=== PATIENT | female | born 1975 | race Caucasian/White ===

== ENCOUNTER → 2017-05-03 | Outpatient (CLI) | payer OTHER ==
[~2017-05-03] MED LIST: AK-TRACIN500 U/GM OP; CLINDAMYCIN HC300 MG PO; DIFLUCAN150 MG PO; FLEXERIL10 MG PO; HYDROCODONE1 TABLET PO; IBU-8800 MG PO; KEFLEX 500MG.500 MG PO; LORTAB 5/500 501 TAB PO; MEDROL 4MG. DOSE4 MG PO; MOTRIN800 MG PO; NAPROXEN SODIU500 MG PO; NOMEDS *; PHENERGAN 25MG.25 M1 PO; PHENERGAN VC +120 ML PO; TYLENOL W/CODEI1 TA2 PO; VOLTAREN75 MG PO; ZITHROMAX Z PA250 MG PO; ZOFRAN ODT4 MG PO
--- NOTE | 2017-05-03 15:23 | RADIOLOGY REPORT PS360 ---
EXAM: LUMBAR SPINE 5 VIEWS HISTORY: Low back pain RT HIP PAIN,PELVIC PAIN,ZI LOW BACK PAIN ORDERING PHYSICIAN: Micaela Montoya APRN PATIENT AGE: 42 years COMPARISON: None FINDINGS: Normal alignment. No fracture or dislocation. No lytic or blastic change. There is partial lumbarization of S1 with mild degenerative disc disease at L4-L5. No lytic or blastic change. The SI joints have an unremarkable appearance. IMPRESSION: Mild degenerative disc disease at L4-5
--- NOTE | 2017-05-03 15:27 | RADIOLOGY REPORT PS360 ---
HIP RT 2-3V W/PELVIS IF PERFOR HISTORY: RT HIP PAIN,PELVIC PAIN,ZI LOW BACK PAIN ORDERING PHYSICIAN: Micaela Montoya APRN PATIENT AGE: 42 years COMPARISON: None FINDINGS: No fracture or dislocation is evident. No significant degenerative change. No lytic or blastic change. Unremarkable soft tissues IMPRESSION: Negative right hip
== END ==
LOC: RAD 11:28
DX: M25.551 Pain in right hip (principal); M54.5 Low back pain; R10.2 Pelvic and perineal pain

== ENCOUNTER → 2017-05-30 | Outpatient (CLI) | payer OTHER ==
--- NOTE | 2017-05-31 10:06 | RADIOLOGY REPORT PS360 ---
MRI-LOW EXT ANY JOINT W/O-RT HISTORY: Right hip and buttock pain with burning in the body. Right leg pain PELVIC PAIN, RIGHT HIP PAIN ORDERING PHYSICIAN: Micaela Montoya APRN PATIENT AGE: 42 years COMPARISON: Radiograph of 05/03/2017 TECHNIQUE: Standard multiplanar multiecho sequences are performed without contrast. FINDINGS: There is no evidence of fracture or dislocation. No evidence of avascular process of the femoral head. No significant degenerative change apparent. Candis graph there is some ill-defined increased T2 signal involving the region of the anterior inferior iliac spine on the right and the superior and anterior margin of the acetabulum.. Tendon for the rectus femoris which inserts on this region has an unremarkable appearance. No other significant anomalies are evident. IMPRESSION: 1. Small area of bone marrow edema involving the anterior inferior iliac spine on the right as well as the anterior roof of the acetabulum. This is of unknown etiology and could be related to prior trauma bone bruise. Consistent repetitive strain from the rectus femoris such as repetitive hip flexion could conceivably also cause some underlying inflammation/edema. Please correlate clinically. The rectus femoris tendon does not appear torn. 2. Otherwise negative MRI of the right hip
== END ==
LOC: RAD 13:45
DX: M25.551 Pain in right hip (principal); R10.2 Pelvic and perineal pain